=== PATIENT | female | born 1945 | race Asian ===

== ENCOUNTER 2016-12-15 14:16 | Emergency (ER) | payer SELFPAY ==
[~2016-12-15] VITALS: Ht 154.9 cm; Wt 52.2 kg
[2016-12-15 14:21] VITALS: BP 152/88
[2016-12-15] MEDS ORDERED: IBUPROFEN600 MG ORAL (15:42)
[2016-12-15 15:47] VITALS: BP 152/88
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
== END 2016-12-15 15:47 | disposition home or self-care (01) ==
LOC: EDBD 14:16 → EMR 14:35
DX: S46.912A Strain of unspecified muscle, fascia and tendon at shoulder and upper arm level, left arm, initial encounter (principal); V49.50XA Passenger injured in collision with unspecified motor vehicles in traffic accident, initial encounter; Y92.410 Unspecified street and highway as the place of occurrence of the external cause; I10 Essential (primary) hypertension; E11.9 Type 2 diabetes mellitus without complications
CPT/HCPCS: 99283